=== PATIENT | male | born 1965 | race Native Hawaiian/Other Pacific Islander ===

== ENCOUNTER 2016-06-08 14:44 | Outpatient (CLI) | payer BC | END 2016-06-08 19:16 | disposition home or self-care (01) | LOC: LABW 14:44 | DX: R19.7 Diarrhea, unspecified (principal) | CPT/HCPCS: 82272; 87045; 87205; 87328; 87329; 87493; 87798; 87899 ==

== ENCOUNTER 2018-02-05 13:16 | Emergency (ER) | payer BC ==
[~2018-02-05] VITALS: Ht 172.7 cm; Wt 111.1 kg
[2018-02-05 13:24] VITALS: TEMP 98.2
[2018-02-05 14:25] LABS: PLATELET COUNT 259 K/uL (142-355)
[2018-02-05 15:18] LABS: POTASSIUM 4.7 mmol/L (3.6-5.2)
[2018-02-05 16:58] VITALS: BP 133/88
== END 2018-02-05 16:59 | disposition home or self-care (01) ==
LOC: ED 13:16
PROVIDERS: Family Medicine
DX: N23 Unspecified renal colic (principal); N20.0 Calculus of kidney
CPT/HCPCS: 80053; 81000; 85027; 96365; 96374; 96375; 99284; J1885; J2175; J2405